=== PATIENT | male | born 1970 | race Caucasian/White ===

== ENCOUNTER 2021-01-29 20:07 | Emergency (ER) | payer BC ==
[2021-01-29] MEDS ORDERED: Diphtheria,Pertussis(Acell),Tetanus Vaccine 0.5 ML Syringe IM ONE (20:49)
--- NOTE | 2021-01-29 20:53 | EDM.PDOC ---
ED HPI GENERAL MEDICAL PROBLEM - General Chief Complaint: Laceration Stated Complaint: LT HAND LAC/INJURY Time Seen by Provider: 01/29/21 20:33 Source of Information: Reports: Patient, Family (Son) History Limitations: Reports: No Limitations - History of Present Illness INITIAL COMMENTS - FREE TEXT/NARRATIVE: Mr. James is a very pleasant 50-year-old gentleman who now presents the ED with a left hand injury. He states that he was splitting wood with a hatchet at his son's house around 18:30 tonight, when he accidentally cut the dorsal aspect of his left hand. He is otherwise uninjured. He wrapped the wound and gauze and applied ice prior to coming to the ED. The patient does not recall when his last tetanus vaccination was, and agreed to receive one here. Here in the ED, the patient's initial BP is found to be mildly elevated at 148/88, otherwise, he is hemodynamically stable, afebrile, saturating 96% on room air. He appears to be comfortable, in no acute distress. Prior to tonight, the patient denies having a recent fever, chills, sore throat, ear pain, nasal or sinus congestion, cough, dyspnea, chest pain, palpitations, nausea, vomiting, constipation, diarrhea, abdominal pain, urinary symptoms, recent weight gain or weight loss, recent bloody bowel movements or black bowel movements, recent joint aches, headaches, or rashes. The patient does not have a PCP. He has not received a COVID vaccination. - Related Data Allergies Allergy/AdvReac Type Severity Reaction Status Date / Time No Known Allergies Allergy Verified 01/29/21 20:30 Home Meds: Home Meds . 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 ED EXAM, SKIN/RASH Exam: See Below Exam Limited By: No Limitations General Appearance: Alert, WD/WN, No Apparent Distress Extremities: Other (3.5 cm linear laceration over the dorsal aspect of the second metacarpal, extending over the MCP joint. A lacerated tendon is visible. The patient has minimal extensor strength to his left second finger. Normal flexor strength. Neurovascular status of the left hand is intact.) ED SKIN PROCEDURES - Laceration/Wound Repair Left Hand Appearance: Subcutaneous, Irregular, Clean Distal NVT: Neuro & Vascular Intact, Other (+ 2nd extensor tendon laceration) Anesthetic Type: Local Local Anesthesia - Lidocaine (Xylocaine): 1% with EPI (50:50 admixture) Local Anesthesia - Bupivicaine (Marcaine): 0.5% Plain (50:50 admixture) Local Anesthetic Volume: 1cc Skin Prep: Providone-Iodine (Betadine) Exploration/Debridement/Repair: Wound Explored, In a Bloodless Field, Explored to Base, No Foreign Material Found Closed with: Sutures Lac/Wound length In cm: 3.5 Suture Size: 3-0 # of Sutures: 6 Suture Type: Nylon (Ethilon), Running, Simple Drain Placement: No Sterile Dressing Applied: Nurse Tetanus Status Addressed: Yes Complications: No Course - Vital Signs Last Recorded V/S: Last Vital Signs Temp 36.2 C 01/29/21 20:27 Pulse 92 01/29/21 20:27 Resp 14 01/29/21 20:27 BP 148/88 H 01/29/21 20:27 Pulse Ox 96 01/29/21 20:27 - Orders/Labs/Meds Meds: Medications Discontinued Medications Generic Name Dose Route Start Last Admin Trade Name Sergey PRN Reason Stop Dose Admin Bupivacaine HCl 10 ml 01/29/21 23:12 01/29/21 23:23 Bupivacaine 0.5% 10 Ml Sdv INJECT 01/29/21 23:13 10 ml ONETIME ONE Administration Cephalexin 500 mg 01/29/21 23:10 01/29/21 23:23 Cephalexin 500 Mg Cap PO 01/29/21 23:11 500 mg ONETIME STA Administration Diphtheria/Tetanus/Acell Pertussis 0.5 ml 01/29/21 20:49 01/29/21 20:56 Diphtheria,Pertussis(Acell),Tetanus Vaccine 0.5 Ml Syringe IM 01/29/21 20:50 0.5 ml .ONCE ONE Administration Lidocaine/Epinephrine 20 ml 01/29/21 23:12 01/29/21 23:30 Lidocaine 1% With Epinephrine 1:100,000 20 Ml Mdv INJECT 01/29/21 23:13 20 ml ONETIME ONE Administration Lidocaine/Epinephrine Confirm 01/29/21 23:29 Lidocaine 1% With Epinephrine 1:100,000 10 Ml Mdv Administered 01/29/21 23:30 Dose 10 ml .ROUTE .[facility] ONE - Re-Assessments/Exams Free Text/Narrative Re-Assessment/Exam: 01/29/21 20:51 The patient has minimal extension strength of his left 2nd finger, indicating a near-complete laceration of his extensor tendon. I have ordered x-rays to evaluate for a bone injury, and the patient will be given a tetanus vaccination. After I have the x-ray results, I will endeavor to contact a Hand Surgeon. The patient declined an offer for pain medication. 01/29/21 22:53 4-view radiographs of the left hand appear to be grossly normal, with no fractures, dislocations, or foreign bodies identified. Formal read per the Radiologist pending. 01/29/21 23:10 Case discussed with Mery at [facility] at 23:04. Case then discussed with Dr. Felix Cruz, Orthopedic Surgeon veterinary practitioner, at 23:08. He recommended that we rinse the wound before loosely suturing. He did not feel that a splint was necessary. He recommended 4 to 5 days of oral Keflex. He would like to see the patient in his office this coming 02/01/2021. The patient is to call his office on Sunday to make an appointment. 01/29/21 23:55 After the wound was irrigated per Sandi BUTTERFIELD, I created a sterile field with Betadine and sterile drapes, in the usual fashion. The wound was then infiltrated with a 50-50 admixture of bupivacaine 0.5% without epinephrine and lidocaine 1% with epinephrine, to good anesthetic effect. The wound was then closed with 6 simple running sutures using 3-0 Ethilon. The patient tolerated the procedure well. A sterile dressing will be applied per his nurse. The patient requested a splint, therefore an AlumaFoam splint will be taped, keeping his left 2nd finger in extension. He will be given an [facility] prescription for Keflex. Departure - Departure Time of Disposition: 23:57 Disposition: Home, Self-Care 01 Condition: Good Clinical Impression: Extensor tendon laceration of left hand with open wound - Discharge Information *PRESCRIPTION DRUG MONITORING PROGRAM REVIEWED*: Not Applicable *COPY OF PRESCRIPTION DRUG MONITORING REPORT IN PATIENT ALE: Not Applicable Instructions: Crush Injury of the Hand, [id number] Referrals: PCP,None [Primary Care Provider] - Felix Cruz [Ordering Only Provider] - Forms: ED Department Discharge Additional Instructions: You were seen in the emergency room after cutting your left hand with a hatchet while splitting wood [employer]. Work-up in the ER included x-rays of your left hand, which showed no bony injuries or foreign bodies in the hand. On examination, you were found to have an extensor tendon laceration of your second finger. Your wound was sutured in the ER. Keep the wound clean with ordinary soap and water when you bathe. Do not soak the wound, such as doing dishes, in the tub, or swimming. Pat dry, then apply a clean dressing, daily. You may remove the splint for bathing purposes, but we recommend that you reapply it after you reapply the clean dressing. You have been started on the antibiotic Keflex, and a prescription for Keflex has been provided to you via [facility]. Take 1 tablet of Keflex every 6 hours, starting around 6:00 tomorrow morning, 01/30/2021, as prescribed. Finish the entire prescription unless told otherwise by Dr. Cruz. You may take [id number] ibuprofen as needed for discomfort. Contact the office of the Hand Surgeon Dr. Felix Cruz on 01/31/2021, in order to make an appointment to see Dr. Cruz on 02/01/2021, in [place]. Make sure that the soliciting freight agent understands that you are following up from the ER, and that Dr. Cruz requested that you be seen on Sunday. Don't forget that [place] is 1 hour ahead of us. If any other problems, please do not hesitate to return to the ER. *You were given a tetanus vaccination during your ER visit.*
[2021-01-29] MEDS ORDERED: Cephalexin 500 MG Cap PO STA (23:10)
[2021-01-29] MEDS ORDERED: Lidocaine 1% with EPINEPHrine 1:100,000 20 ML MDV INJECT ONE (23:12)
[2021-01-29] MEDS ORDERED: Bupivacaine 0.5% 10 ML SDV INJECT ONE (23:12)
[2021-01-29] MEDS ORDERED: Lidocaine 1% with EPINEPHrine 1:100,000 10 ML MDV ONE (23:29)
--- NOTE | 2021-01-30 07:23 | CR ---
Left hand: 4 views of the left hand were obtained. Comparison: No prior hand study is available. Soft tissue injury appears to be present between the thumb and second finger. No radiopaque foreign object is appreciated. No acute fracture, dislocation or other bony abnormality is appreciated. Impression: 1. Soft tissue injury. 2. No acute abnormality is otherwise seen. Diagnostic code #2
== END 2021-01-30 00:11 | disposition home or self-care (01) ==
LOC: JD.ED 20:07
DX: S66.922A Laceration of unspecified muscle, fascia and tendon at wrist and hand level, left hand, initial encounter (principal); F17.220 Nicotine dependence, chewing tobacco, uncomplicated; Z23 Encounter for immunization; W26.8XXA Contact with other sharp object(s), not elsewhere classified, initial encounter
CPT/HCPCS: 12042; 73130; 90471; 90715; 99283; A9270; J3490; 99284